=== PATIENT | female | born 2000 | race Caucasian/White ===

== ENCOUNTER 2020-08-08 15:32 | Emergency (ER) | payer OTHER ==
[~2020-08-08] VITALS: Ht 162.6 cm; Wt 65.9 kg
[2020-08-08 15:38] VITALS: BP 115/74
[2020-08-08] MEDS ORDERED: PERTUSS(ACELL),DIPH,TET VAC/PF 0.5 ML SYRINGE IM. ONE (16:45)
[2020-08-08] MEDS ORDERED: ACETAMINOPHEN 500 MG TABLET PO ONE (16:45)
== END 2020-08-08 17:05 | disposition home or self-care (01) ==
LOC: EMS 15:37
DX: S61.210A Laceration without foreign body of right index finger without damage to nail, initial encounter (principal); S20.311A Abrasion of right front wall of thorax, initial encounter; R55 Syncope and collapse; J45.909 Unspecified asthma, uncomplicated; W26.0XXA Contact with knife, initial encounter; Y93.89 Activity, other specified; Y92.89 Other specified places as the place of occurrence of the external cause; Y99.8 Other external cause status
CPT/HCPCS: 12001; 90471; 90715; 99283